=== PATIENT | female | born 1950 | race Caucasian/White ===

== ENCOUNTER 2019-11-10 17:39 | Emergency (ER) | payer OTHER ==
[2019-11-10] MEDS ORDERED: Ibuprofen TAB* 200 MG PO ONE (18:17)
[2019-11-10 19:19] VITALS: BP 184/100
--- NOTE | 2019-11-10 19:21 | UC ---
Lower Extremity/Ankle HPI - HPI Summary HPI Summary: PATIENT WAS WALKING INTO HER MUDROOM THIS EVENING ABOUT 30 MINUTES SCARF GLUER WHEN SHE TRIPPED OVER SOME SHOES TWISTING BOTH HER ANKLES AND FALLING TO THE FLOOR. NO HEAD INJURY OR LOC. HAS SWELLING TO LATERAL ANKLES. RIGHT WORSE THAN LEFT. - History of Current Complaint Chief Complaint: UCLowerExtremity Stated Complaint: ANKLE INJURY Time Seen by Provider: 11/10/19 17:53 Hx Obtained From: Patient, Family/Board Finisher - AND 2 SONS Onset/Duration: Sudden Onset, Lasting Minutes, Still Present Severity Initially: Moderate Severity Currently: Moderate Pain Intensity: 3 Pain Scale Used: 0-10 Numeric Aggravating Factor(s): Standing, Ambulation Alleviating Factor(s): Rest, Elevation, Ice Able to Bear Weight: No - Allergies/Home Medications Allergies/Adverse Reactions: Allergies Allergy/AdvReac Type Severity Reaction Status Date / Time No Known Allergies Allergy Verified 11/10/19 17:51 Home Medications: Home Medications NK [No Home Medications Reported] 11/10/19 [History Confirmed 11/10/19] PMH/Surg Hx/FS Hx/Imm Hx Cardiovascular History: Hypertension - BORDERLINE - Surgical History Surgical History: Yes Surgery Procedure, Year, and Place: c section - Family History Known Family History: Positive: Non-Contributory - Social History Alcohol Use: Rare Substance Use Type: None Smoking Status (MU): Never Smoked Tobacco Review of Systems All Other Systems Reviewed And Are Negative: Yes Constitutional: Positive: Negative Skin: Positive: Negative Respiratory: Positive: Negative Cardiovascular: Positive: Negative Gastrointestinal: Positive: Negative Musculoskeletal: Positive: Arthralgia, Decreased ROM, Edema Physical Exam Triage Information Reviewed: Yes Appearance: Well-Appearing, No Pain Distress, Well-Nourished Vital Signs: Initial Vital Signs Temp 99.3 F 11/10/19 17:46 Pulse 86 11/10/19 17:46 Resp 18 11/10/19 17:46 BP 196/100 11/10/19 17:46 Pulse Ox 99 11/10/19 17:46 Vital Signs Reviewed: Yes Eyes: Positive: Conjunctiva Clear ENT: Positive: Hearing grossly normal Neck: Positive: Supple Respiratory: Positive: No respiratory distress, No accessory muscle use Cardiovascular: Positive: Pulses Normal Abdomen Description: Positive: Soft Musculoskeletal: Positive: ROM Limited @ - ANKLES BILATERALLY, Edema @ - BILATERAL LATERAL ANKLES, Other: - TTP LATERAL MALLEOLI RIGHT > LEFT. ACHILLES INTACT BILATERALLY Neurological: Positive: Alert Psychological: Positive: Age Appropriate Behavior Skin: Positive: Rashes Diagnostics - Radiology BILATERAL ANKLE XRAYS Radiology Interpretation Completed By: Radiologist Summary of Radiographic Findings: Oblique acute fracture through the right lateral malleolus which is nondisplaced Lower Extremity Course/Dx - Course Course Of Treatment: BILATERAL ANKLE X-RAYS OBTAINED. OBLIQUE ACUTE NONDISPLACED FRACTURE THROUGH THE RIGHT LATERAL MALLEOLUS. LEFT ANKLE WITH NO ACUTE BONY INJURY. PATIENT PLACED IN A RIGHT CAM BOOT. SHE HAS CRUTCHES AT HOME ALREADY. SHE IS TO BE NONWEIGHTBEARING. ADVISED TO CALL ORTHOPEDICS FIRST THING Tuesday TO SCHEDULE FOLLOW-UP APPOINTMENT. PATIENT WITH EXTREMELY ELEVATED BLOOD PRESSURE IN THE URGENT CARE. SHE STATES HER BLOOD PRESSURE IS NOT NORMALLY THIS HIGH. SHE DENIES ANY CHEST PAIN, SHORTNESS OF BREATH, NAUSEA, SWEATS, DIZZINESS. SHE IS DECLINING FURTHER EVALUATION IN THE EMERGENCY ROOM. STATES SHE WILL GO DIRECTLY TO THE PHARMACY RIGHT NOW TO BUY A BLOOD PRESSURE MONITOR. SHE IS CONFIDENT HER READINGS WILL IMPROVE SHE CALMS DOWN AFTER HER ACUTE INJURY. ADVISED TO GO DIRECTLY TO THE ER IF SHE DEVELOPS CHEST PAIN, SHORTNESS OF BREATH, NAUSEA, SWEATS, DIZZINESS OR ANY OTHER CONCERNING SYMPTOMS. SHE WILL FOLLOW-UP WITH [facility]. FORREST LIN'S NUMBER PROVIDED FOR PATIENT TO ESTABLISH WITH A PCP. - Differential Dx/Diagnosis Provider Diagnosis: Fracture of right ankle, lateral malleolus Discharge ED - Sign-Out/Discharge Documenting (check all that apply): Patient Departure All imaging exams completed and their final reports reviewed: Yes - Discharge Plan Condition: Stable Disposition: HOME Patient Education Materials: Ankle Fracture (ED), Ankle Sprain (ED) Referrals: Zoraida Santo MD [Medical Doctor] - 2 Days Additional Instructions: YOUR X-RAY TODAY IS POSITIVE FOR A RIGHT ANKLE FRACTURE ON MY INITIAL INTERPRETATION. WE WILL CALL YOU IF THE RADIOLOGY READ DIFFERS. CALL ORTHOPEDICS FIRST THING Tuesday FOR A FOLLOW-UP APPOINTMENT. KEEP THE BOOT ON UNTIL SEEN BY ORTHOPEDICS. USE YOUR CRUTCHES TO HELP WITH MOBILITY. NO WEIGHTBEARING. IBUPROFEN NEEDED FOR DISCOMFORT. REST, ICE, ELEVATE. - Billing Disposition and Condition Condition: STABLE Disposition: Home
== END 2019-11-10 19:22 | disposition home or self-care (01) ==
LOC: UCEAST 17:39
DX: S82.64XA Nondisplaced fracture of lateral malleolus of right fibula, initial encounter for closed fracture (principal); R03.0 Elevated blood-pressure reading, without diagnosis of hypertension; W18.09XA Striking against other object with subsequent fall, initial encounter; Y93.01 Activity, walking, marching and hiking; Y92.9 Unspecified place or not applicable
CPT/HCPCS: 99212; A9270-GY; G0463

== ENCOUNTER 2021-07-08 05:06 | Inpatient (IN) ==
[2021-07-08] MEDS ORDERED: Heparin - STEMI 5,000 UNITS/ML 1 ml VIAL IV ONE (05:11)
[2021-07-08] MEDS ORDERED: NS 0.9% 1000 ml BAG 1,000 ML IV ONE (05:17)
[2021-07-08] MEDS ORDERED: Heparin 2 UNITS/ML 1000 mls 1,000 ML IV ONE ×2 (05:20→07:42)
[2021-07-08] MEDS ORDERED: VERAPAMIL 2.5 MG/ML 2 ML VIAL ** 5 mg/2 ml ONE (05:20)
[2021-07-08] MEDS ORDERED: Heparin 1,000 UNIT/ML 10 ml (10,000 UNITS) CATHLAB/DIALYSIS ONE (05:20)
[2021-07-08] MEDS ORDERED: Iohexol 350 (CONTRAST) 200 ML MDV IV ONE (05:21)
[2021-07-08] MEDS ORDERED: Lidocaine 1% VIAL 10 MG/ML VIAL ONE (05:21)
[2021-07-08] MEDS ORDERED: nitroGLYCERIN DRIP 25,000 MCG/250 ML BTL ONE (05:21)
[2021-07-08 05:24] LABS: Hematocrit 43 % (35-47); Mean Corpuscular HGB Conc 32 g/dL (31-36); Mean Corpuscular Hemoglobin 30 pg (27-31); Mean Corpuscular Volume 93 fL (80-97); Mean Platelet Volume 7.7 fL (7.4-10.4); Platelet Count 274 10^3/uL (150-450); Red Blood Count 4.66 10^6 /uL (3.70-4.87); Red Cell Distribution Width 14 % (10-15); White Blood Count 12.5 10^3/uL (3.5-10.8)
[2021-07-08 05:40] LABS: Activated Partial Thrombo Time 23.8 seconds (26.0-38.0); INR 0.92 (0.86-1.15)
[2021-07-08] MEDS ORDERED: fentaNYL 100 mcg/2 ml 50 MCG/ML VIAL ONE (05:49)
[2021-07-08] MEDS ORDERED: Midazolam 5 mg/5 ml VIAL 1 mg/ml 5 ml VIAL (5 mg) ONE (05:49)
[2021-07-08 05:56] LABS: ALT 13 U/L (7-52); AST 14 U/L (13-39); Albumin 4.1 g/dL (3.2-5.2); Albumin/Globulin Ratio 1.5 (1-3); Alkaline Phosphatase 64 U/L (35-149); Anion Gap 9 mmol/L (2-11); Blood Urea Nitrogen 21 mg/dL (6-24); CO2 Carbon Dioxide 24 mmol/L (22-32); Calcium 8.9 mg/dL (8.6-10.3); Chloride 107 mmol/L (101-111); EGFR African American 67.9 (>60); EGFR Non-African American 56.1 (>60); Globulin 2.7 g/dL (2-4); Glucose 171 mg/dL (70-100); LDL Cholesterol Direct 154 mg/dL; Magnesium 2.2 mg/dL (1.9-2.7); Potassium 4.1 mmol/L (3.5-5.0); Sodium 140 mmol/L (135-145); Total Protein 6.8 g/dL (6.4-8.9)
[2021-07-08] MEDS ORDERED: Bivalirudin 250 MG VIAL ONE ×2 (05:56→06:45)
[2021-07-08 06:00] LABS: Troponin I 0.05 ng/mL (<0.03)
[2021-07-08] MEDS ORDERED: Heparin 2 UNITS/ML 1000 mls 2,000 ML IV ONE (06:22)
[2021-07-08] MEDS ORDERED: DOPamine 800 MG/250 ML IVPREM 800 MG/250 ML ML CENTR ONE (06:50)
[2021-07-08] MEDS ORDERED: Ondansetron 4 mg VIAL 2 MG/ML 2 ml VIAL ONE (07:08)
[2021-07-08] MEDS ORDERED: Norepinephrine IV 1 MG/ML 4 ML VIAL ONE (07:36)
[2021-07-08] MEDS ORDERED: Heparin DRIP 25,000 UNITS BAG 25,000 UNITS/500 ML BAG ONE (08:21)
[2021-07-08] MEDS ORDERED: Ondansetron 4 mg VIAL 2 MG/ML 2 ml VIAL IV PRN (09:40)
[2021-07-08] MEDS ORDERED: DOPamine 800 MG/250 ML IVPREM 800 MG/250 ML ML CENTR SCH (10:00)
[2021-07-08 10:14] VITALS: BP 110/79
[2021-07-08] MEDS ORDERED: Heparin DRIP 25,000 UNITS BAG 25,000 UNITS/500 ML BAG IV SCH (11:00)
[2021-07-08] MEDS ORDERED: Heparin 5000 UNITS/ML 1 mL VIAL IV SCH (11:00)
== END 2021-07-08 11:20 | disposition short-term general hospital (02) | DRG 270 ==
LOC: ED 05:06 → CHICATH 05:42 → ICU 10:05
PROVIDERS: ADMIT Internal Medicine Critical Care Medicine